=== PATIENT | male | born 1935 | race Caucasian/White ===

== ENCOUNTER 2019-06-08 16:19 | Emergency (ER) | payer MEDICARE, BC ==
--- NOTE | 2019-06-08 17:15 | EDM.PDOC ---
<Angelia Hagen - Last Filed: 06/08/19 17:08> ED HPI GENERAL MEDICAL PROBLEM - General Chief Complaint: General Stated Complaint: BALANCE ISSUES Time Seen by Provider: 06/08/19 17:08 Source of Information: Reports: Patient History Limitations: Reports: No Limitations - History of Present Illness INITIAL COMMENTS - FREE TEXT/NARRATIVE: pt has been off balance and has fallen twice in the last 2 weeks. Onset: Today Duration: Hour(s): Location: Reports: Head Associated Symptoms: Reports: Other ( balance issues. ) - Related Data Allergies Allergy/AdvReac Type Severity Reaction Status Date / Time No Known Allergies Allergy Verified 06/08/19 16:51 Home Meds: Home Meds Albuterol Sulfate [Proair Hfa] 2 puff INH Q4H PRN 06/06/13 [History] Aloe Vera 1 cap PO DAILY 06/06/13 [History] Aspirin [Adult Low Dose Aspirin EC] 81 mg PO DAILY 06/06/13 [History] Atenolol [Tenormin] 12.5 mg PO DAILY 06/06/13 [History] Bee Pollen 1 cap PO DAILY 06/06/13 [History] Calcium Carbonate/Vitamin D3 [Calcium 600 + Vit D 400] 1 tab PO DAILY 06/06/13 [ History] Flaxseed [Flaxseed Oil] 1,000 mg PO DAILY 06/06/13 [History] Lactobacillus Acidophilus [Probiotic] 2 cap PO DAILY 06/06/13 [History] Multivitamin [Multi Vitamin Daily] 1 each PO DAILY 06/06/13 [History] Finasteride 5 mg PO DAILY 06/08/19 [History] Past Medical History Cardiovascular History: Reports: Hypertension, [place] Respiratory History: Reports: COPD Gastrointestinal History: Reports: None Genitourinary History: Reports: Prostate Disorder Musculoskeletal History: Reports: Osteoarthritis - Past Surgical History Cardiovascular Surgical History: Reports: None Respiratory Surgical History: Reports: Lung Resection GI Surgical History: Reports: Hernia Repair/Other Male Surgical History: Reports: None Musculoskeletal Surgical History: Reports: Other (See Below) Other Musculoskeletal Surgeries/Procedures:: right hand finger surgery Social & Family History - Tobacco Use Smoking Status *Q: Never Smoker - Recreational Drug Use Recreational Drug Use: No ED ROS GENERAL - Review of Systems Review Of Systems: See Below Constitutional: Reports: No Symptoms HEENT: Reports: No Symptoms Respiratory: Reports: No Symptoms Cardiovascular: Reports: No Symptoms Endocrine: Reports: No Symptoms GI/Abdominal: Reports: No Symptoms Musculoskeletal: Reports: No Symptoms ED EXAM, GENERAL - Physical Exam Exam: See Below Free Text/Narrative:: Pt arrived with ahistory of 2 falls in 2 weeks. Exam Limited By: No Limitations General Appearance: Alert, Anxious, Moderate Distress, Other (pupils equal and reactive. ) Ears: Normal TMs Nose: Normal Inspection Throat/Mouth: Normal Inspection Head: Other (pt did hit the back of his head with the first fall. He was not knocked out. ) Neck: Normal Inspection Respiratory/Chest: No Respiratory Distress Cardiovascular: Regular Rate, Rhythm GI/Abdominal: Soft, Non-Tender (Male) Exam: Deferred Rectal (Males) Exam: Deferred Back Exam: Normal Inspection Extremities: Normal Inspection Neurological: Alert, Oriented, Normal Cognition Psychiatric: Normal Affect Course - Vital Signs Last Recorded V/S: Last Vital Signs Temp 97.7 F 06/08/19 16:56 Pulse 63 06/08/19 17:45 Resp 12 06/08/19 18:40 BP 131/68 06/08/19 18:40 Pulse Ox 97 06/08/19 18:40 - Orders/Labs/Meds Orders: Active Orders 24 hr Category Date Time Status Cardiac Monitoring [RC] .As Directed Care 06/08/19 17:40 Active EKG Documentation Completion [RC] ASDIRECTED Care 06/08/19 17:40 Active EKG 12 Lead [EK] Routine Ther 06/08/19 17:40 Ordered Labs: Laboratory Tests 06/08/19 06/08/19 06/08/19 Range/Units 17:27 17:31 17:31 WBC 6.7 (4.5-11.0) K/uL RBC 4.54 (4.30-5.90) M/uL Hgb 13.9 (12.0-15.0) g/dL Hct 42.7 (40.0-54.0) % MCV 94 (80-98) fL MCH 31 (27-31) pg MCHC 33 (32-36) % Plt Count 186 (150-400) K/uL Neut % (Auto) 67 H (36-66) % Lymph % (Auto) 21 L (24-44) % [place] % (Auto) 8 H (2-6) % Eos % (Auto) 3 (2-4) % Baso % (Auto) 0 (0-1) % Sodium 139 L (140-148) mmol/L Potassium 4.0 (3.6-5.2) mmol/L Chloride 103 (100-108) mmol/L Carbon Dioxide 30 (21-32) mmol/L Anion Gap 10.0 (5.0-14.0) mmol/L BUN 15 (7-18) mg/dL Creatinine 1.1 (0.8-1.3) mg/dL Est Cr Clr Drug Dosing 48.41 mL/min Estimated GFR (MDRD) > 60 (>60) Glucose 98 (74-106) mg/dL Calcium 8.5 (8.5-10.1) mg/dL Total Bilirubin 0.3 (0.2-1.0) mg/dL AST 31 (15-37) U/L ALT 35 (12-78) U/L Alkaline Phosphatase 83 (46-116) U/L Troponin I < 0.017 (0.000-0.056) ng/mL Total Protein 7.0 (6.4-8.2) g/dL Albumin 3.8 (3.4-5.0) g/dL Globulin 3.2 (2.3-3.5) g/dL Albumin/Globulin Ratio 1.2 (1.2-2.2) Urine Color (YELLOW) Urine Appearance (CLEAR) Urine pH (5.0-8.0) Ur Specific [place] (1.008-1.030) Urine Protein (NEGATIVE) mg/dL Urine Glucose (UA) (NEGATIVE) mg/dL Urine Ketones (NEGATIVE) mg/dL Urine Occult Blood (NEGATIVE) Urine Nitrite (NEGATIVE) Urine Bilirubin (NEGATIVE) Urine Urobilinogen (0.2-1.0) EU/dL Ur Leukocyte Esterase (NEGATIVE) Urine RBC (0-5) Urine WBC (0-5) Ur Epithelial Cells Amorphous Sediment Urine Bacteria Urine Mucus 06/08/19 Range/Units 18:19 WBC (4.5-11.0) K/uL RBC (4.30-5.90) M/uL Hgb (12.0-15.0) g/dL Hct (40.0-54.0) % MCV (80-98) fL MCH (27-31) pg MCHC (32-36) % Plt Count (150-400) K/uL Neut % (Auto) (36-66) % Lymph % (Auto) (24-44) % [place] % (Auto) (2-6) % Eos % (Auto) (2-4) % Baso % (Auto) (0-1) % Sodium (140-148) mmol/L Potassium (3.6-5.2) mmol/L Chloride (100-108) mmol/L Carbon Dioxide (21-32) mmol/L Anion Gap (5.0-14.0) mmol/L BUN (7-18) mg/dL Creatinine (0.8-1.3) mg/dL Est Cr Clr Drug Dosing mL/min Estimated GFR (MDRD) (>60) Glucose (74-106) mg/dL Calcium (8.5-10.1) mg/dL Total Bilirubin (0.2-1.0) mg/dL AST (15-37) U/L ALT (12-78) U/L Alkaline Phosphatase (46-116) U/L Troponin I (0.000-0.056) ng/mL Total Protein (6.4-8.2) g/dL Albumin (3.4-5.0) g/dL Globulin (2.3-3.5) g/dL Albumin/Globulin Ratio (1.2-2.2) Urine Color Yellow (YELLOW) Urine Appearance Clear (CLEAR) Urine pH 7.0 (5.0-8.0) Ur Specific [place] 1.020 (1.008-1.030) Urine Protein Negative (NEGATIVE) mg/dL Urine Glucose (UA) Negative (NEGATIVE) mg/dL Urine Ketones Negative (NEGATIVE) mg/dL Urine Occult Blood Negative (NEGATIVE) Urine Nitrite Negative (NEGATIVE) Urine Bilirubin Negative (NEGATIVE) Urine Urobilinogen 0.2 (0.2-1.0) EU/dL Ur Leukocyte Esterase Negative (NEGATIVE) Urine RBC 0-5 (0-5) Urine WBC 0-5 (0-5) Ur Epithelial Cells Not seen Amorphous Sediment Not seen Urine Bacteria Not seen Urine Mucus Not seen Meds: Medications Discontinued Medications Generic Name Dose Route Start Last Admin Trade Name Freq PRN Reason Stop Dose Admin Meclizine HCl 25 mg 06/08/19 18:34 06/08/19 18:39 Antivert PO 06/08/19 18:35 25 mg ONETIME ONE Administration Departure - Departure Disposition: Home, Self-Care 01 Clinical Impression: Balance problem - Discharge Information Instructions: Fall Prevention in the Home, Adult, [id number] Referrals: PCP,None [Primary Care Provider] - Forms: ED Department Discharge Care Plan Goals: Continue your current medications, activity as tolerated and [facility] work-up regarding your balance issues especially if they persist. You may return to the emergency room anytime if worsening or concerns. Sepsis Event Note - Evaluation Sepsis Screening Result: No Definite Risk - Focused Exam Vital Signs: Vital Signs Temp Pulse Resp BP Pulse Ox 06/08/19 18:40 12 131/68 97 06/08/19 17:45 63 12 138/71 96 06/08/19 16:56 97.7 F 64 17 166/118 H 97 06/08/19 16:42 97.7 F 64 17 166/118 H 97 Date Exam was Performed: 06/08/19 Time Exam was Performed: 17:08 <Jone Coronel - Last Filed: 06/08/19 19:51> Course - Re-Assessments/Exams Free Text/Narrative Re-Assessment/Exam: 06/08/19 19:11 All this patient's work-up looks good so far, patient care was turned over from Dr. Hagen pending a UA and troponin. Troponin was 0 and UA is normal. Visited with the patient for a few minutes and he seems very stable and asymptomatic at this time. He has an appointment coming up at the [facility], I asked him to mention his symptoms as he may need an MRI, carotid ultrasound or further work-up. No need for admission or treatment at this time. It is likely an inner ear issue. Departure - Departure Time of Disposition: 19:32 Sepsis Event Note - Focused Exam Date Exam was Performed: 06/08/19 Time Exam was Performed: 19:51
--- NOTE | 2019-06-08 18:07 | CRLCT ---
INDICATION: Balance issues. TECHNIQUE: CT of the head without contrast. Coronal and sagittal reformats. Bone and soft tissue algorithms. COMPARISON: No prior studies available for comparison at this institution. FINDINGS: No acute intracranial hemorrhage or extra-axial collection. No evidence of acute cortical infarction. No mass effect or midline shift. Mild generalized cerebral/cerebellar parenchymal volume loss. Mild regions of decreased attenuation within the periventricular and subcortical white matter of both cerebral hemispheres most likely reflects chronic microvascular ischemic disease and age related change in this patient. Vascular calcifications within the carotid siphons. Orbital contents are normal. No calvarial fractures. 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 There is a 1.5 cm right parietal hyperdense scalp lesion that may represent an inclusion cyst or other benign dermatologic lesion. Mastoid air cells are clear. IMPRESSION: No acute intracranial abnormality. Please note that all CT scans at this facility use dose modulation, iterative reconstruction, and/or weight-based dosing when appropriate to reduce radiation dose to as low as reasonably achievable. Dictated by Mykel Ahmadi MD @ Jun 08 2019 6:03PM Signed by Dr. Mykel Ahmadi @ Jun 08 2019 6:06PM
[2019-06-08] MEDS ORDERED: Meclizine 25 MG Tab PO ONE (18:34)
== END 2019-06-08 19:35 | disposition home or self-care (01) ==
LOC: JP.ED 16:19
DX: E87.8 Other disorders of electrolyte and fluid balance, not elsewhere classified (principal); I10 Essential (primary) hypertension; I25.2 Old myocardial infarction; M19.90 Unspecified osteoarthritis, unspecified site; J44.9 Chronic obstructive pulmonary disease, unspecified; Z79.899 Other long term (current) drug therapy; Z79.82 Long term (current) use of aspirin
CPT/HCPCS: 36415; 70450; 80053; 81001; 84484; 85025; 93005; 99284; A9270; 93010

== ENCOUNTER 2020-07-31 06:59 | Emergency (ER) | payer MEDICARE, BC ==
[2020-07-31] MEDS ORDERED: Acetaminophen/oxyCODONE 325-5 MG Tab PO STA (07:22)
--- NOTE | 2020-07-31 07:28 | EDM.PDOC ---
ED HPI GENERAL MEDICAL PROBLEM - General Chief Complaint: Neck Problem Stated Complaint: NECK PAIN Time Seen by Provider: 07/31/20 07:10 Source of Information: Reports: Patient, Family, Old Records, RN History Limitations: Reports: No Limitations - History of Present Illness INITIAL COMMENTS - FREE TEXT/NARRATIVE: 84 yo male patient of Dr. Singh presents with onset just before bedtime last night of pretty severe neck pain that kept him awake all night. He denies any injury recently, although he does fall a lot. The pain kept him awake all night. No self tx. He lives with his who does drive, but yet he arrives this morning via EMS with some relief of pain on arrival. EMS did not give anything for pain en route. He is unable to turn his head to the L past the midline today which he and his say is new. No pain or numbness down either of his arms. Onset: Sudden Onset Date: 07/30/20 Duration: Hour(s): (8), Improving Location: Reports: Neck Quality: Reports: Ache Severity: Mild (now, was worse all night) Improves with: Reports: Other (unknown) Worsens with: Reports: Other (unknown) Context: Reports: Other (See HPI) Associated Symptoms: Reports: No Other Symptoms (pain and stiffness only) Treatments [employer]: Reports: Other (see below) (none) Neck Pain Score (Numeric/FACES): 5 - Related Data Allergies Allergy/AdvReac Type Severity Reaction Status Date / Time No Known Allergies Allergy Verified 06/08/19 16:51 Home Meds: Home Meds Albuterol Sulfate [Proair Hfa] 2 puff INH Q4H PRN 06/06/13 [History] Aloe Vera 1 cap PO DAILY 06/06/13 [History] Aspirin [Adult Low Dose Aspirin EC] 81 mg PO DAILY 06/06/13 [History] Atenolol [Tenormin] 12.5 mg PO DAILY 06/06/13 [History] Bee Pollen 1 cap PO DAILY 06/06/13 [History] Calcium Carbonate/Vitamin D3 [Calcium 600 + Vit D 400] 1 tab PO DAILY 06/06/13 [History] Flaxseed [Flaxseed Oil] 1,000 mg PO DAILY 06/06/13 [History] Lactobacillus Acidophilus [Probiotic] 2 cap PO DAILY 06/06/13 [History] Multivitamin [Multi Vitamin Daily] 1 each PO DAILY 06/06/13 [History] Finasteride 5 mg PO DAILY 06/08/19 [History] Past Medical History Cardiovascular History: Reports: Hypertension, [place] Respiratory History: Reports: COPD Gastrointestinal History: Reports: None Genitourinary History: Reports: Prostate Disorder Musculoskeletal History: Reports: Osteoarthritis Neurological History: Reports: Other (See Below) Other Neuro History: diagnosed recently with degenerative neuro disease - Infectious Disease History Infectious Disease History: Reports: Chicken Pox, Measles, Mumps - Past Surgical History Cardiovascular Surgical History: Reports: None Respiratory Surgical History: Reports: Lung Resection GI Surgical History: Reports: Hernia Repair/Other Male Surgical History: Reports: None Musculoskeletal Surgical History: Reports: Other (See Below) Other Musculoskeletal Surgeries/Procedures:: right hand finger surgery Social & Family History - Tobacco Use Tobacco Use Status *Q: Never Tobacco User - Recreational Drug Use Recreational Drug Use: No ED ROS GENERAL - Review of Systems Review Of Systems: See Below Constitutional: Reports: No Symptoms HEENT: Reports: No Symptoms Respiratory: Reports: No Symptoms Cardiovascular: Reports: No Symptoms GI/Abdominal: Reports: No Symptoms Musculoskeletal: Reports: Neck Pain Skin: Reports: No Symptoms Neurological: Reports: No Symptoms ED EXAM, UPPER BACK/NECK PAIN - Physical Exam Exam: See Below Exam Limited By: No Limitations General Appearance: Alert, WD/WN, No Apparent Distress Eye Exam: Bilateral Eye: Normal Inspection Ears Exam: Normal External Exam, Normal Canal, Hearing Grossly Normal Nose Exam: Normal Inspection, No Blood Throat/Mouth Exam: Normal Inspection, Normal Voice, No Airway Compromise Head Exam: Atraumatic, Normocephalic Neck Exam: Limited Range of Motion (Able to look to the right and then back to midline only), Painful Range of Motion, Stiff Neck. 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 nml As Tested, No Motor/Sensory Deficits, Alert, Normal Mood/Affect, Oriented x 3 Psychiatric: Normal Affect, Normal Mood Skin Exam: Normal Color, Warm/Dry Course - Vital Signs Last Recorded V/S: Last Vital Signs Temp 36.5 C 07/31/20 07:02 Pulse 85 07/31/20 07:02 Resp 16 07/31/20 07:02 BP 181/85 H 07/31/20 07:02 Pulse Ox 95 07/31/20 07:02 - Orders/Labs/Meds Meds: Medications Discontinued Medications Generic Name Dose Route Start Last Admin Trade Name [place] PENA Reason Stop Dose Admin Ibuprofen 400 mg 07/31/20 08:14 07/31/20 08:18 Ibuprofen 400 Mg Tab PO 07/31/20 08:15 400 mg ONETIME ONE Administration Oxycodone/Acetaminophen 1 tab 07/31/20 07:22 07/31/20 07:34 Acetaminophen/Oxycodone 325-5 Mg Tab PO 07/31/20 07:23 1 tab ONETIME STA Administration - Radiology Interpretation Free Text/Narrative:: CT cervical spine-severe degen changes at multiple levels CT Results Date: 07/31/20 - Re-Assessments/Exams Free Text/Narrative Re-Assessment/Exam: 07/31/20 09:22 Only a little relief from our medications. No side effects. Will see if PT can see him. Next appt is next at 3:30pm with PT. Will make him an appt for clinic follow up with Dr. Singh. 07/31/20 09:44 Departure - Departure Time of Disposition: 09:45 Disposition: Home, Self-Care 01 Condition: Fair Clinical Impression: Cervical arthritis - Discharge Information *PRESCRIPTION DRUG MONITORING PROGRAM REVIEWED*: No *COPY OF PRESCRIPTION DRUG MONITORING REPORT IN PATIENT JARVIS: No Instructions: Arthritis, [id number] Referrals: PCP,None [Primary Care Provider] - Forms: ED Department Discharge Additional Instructions: Take Mobic 7.5 mg in the morning and again at night for neck pain. Add [place] as needed for added relief. A heating pad or [place] rubbed onto the neck may offer some relief. See Dr. Singh at 10 am this coming Wednesday. Go to physical therapy next Wednesday at 3:20pm. Sepsis Event Note (ED) - Evaluation Sepsis Screening Result: No Definite Risk - Focused Exam Vital Signs: Vital Signs Temp Pulse Resp BP Pulse Ox 07/31/20 07:02 36.5 C 85 16 181/85 H 95
[2020-07-31] MEDS ORDERED: Ibuprofen 400 MG Tab PO ONE (08:14)
--- NOTE | 2020-07-31 08:52 | CT ---
Cervical Spine wo Cont CLINICAL HISTORY: Neck pain, no injury TECHNIQUE: Multiple CT sections were taken through the cervical spine in the transaxial projection. Coronal and sagittal views were reconstructed. Images were viewed at bone as well as soft tissue windows on a digital workstation. Auto dosage reduction and iterative reconstruction techniques employed. FINDINGS: Cervical vertebral body heights are maintained. There is moderate to severe diffuse degenerative disc disease in the mid to lower cervical spine. There is a grade 1 retrolisthesis of C5. This is related to severe osteoarthropathy in the apophyseal joints. Pedicles are intact. Spinous in the odontoid processes appear intact. There is diffuse uncovertebral joint spurring. This causes moderate to severe bilateral neural foraminal encroachment at multiple levels bilaterally. IMPRESSION: No fracture, subluxation or osseous lesion Severe generative disc disease with spondylosis Severe osteoarthropathy in the lumbar facets and uncovertebral joints Severe bilateral neural foraminal encroachment diffusely
== END 2020-07-31 10:00 | disposition home or self-care (01) ==
LOC: JP.ED 06:59
DX: M47.812 Spondylosis without myelopathy or radiculopathy, cervical region (principal); I10 Essential (primary) hypertension; I25.2 Old myocardial infarction; J44.9 Chronic obstructive pulmonary disease, unspecified; M19.90 Unspecified osteoarthritis, unspecified site; Z79.82 Long term (current) use of aspirin; Z79.899 Other long term (current) drug therapy
CPT/HCPCS: 72125; 99284; A9270